=== PATIENT | male | born 1955 | race Two or more races ===

== ENCOUNTER 2020-12-05 20:11 | Inpatient (IN) | payer MEDICAID, OTHER ==
[~2020-12-05] VITALS: Ht 167.6 cm; Wt 126.5 kg
[2020-12-05 20:35] VITALS: BP 114/73
[2020-12-05] MEDS ORDERED: DexAMETHasone SOD PHOS 10MG/1ML VIAL INJ IV ONE (21:00)
[2020-12-05 21:15] LABS: Basophils # (auto) 0 10 ^3/uL (0-0.2); Basophils % (auto) 0.1 % (0.0-2.0); Eosinophils # (auto) 0 10 ^3/uL (0-0.8); Hemoglobin 16.6 g/dL (13.5-17.5); Lymphocytes # (auto) 1.6 10 ^3/uL (0.4-5.4); Lymphocytes % (auto) 8.8 % (10.0-50.0); Mean Corpuscular Hemoglobin 30.5 pg (28.0-32.0); Mean Corpuscular Volume 89.8 fL (80.0-100.0); Monocytes % (auto) 5.7 % (0.0-12.0); Neutrophils # (auto) 15.1 10 ^3/uL (1.6-8.6); Neutrophils % (auto) 85.4 % (37.0-80.0); Nucleated Red Blood Cells % 0.1 %; Platelet Count (auto) 279 10^3/uL (140-450); Red Blood Cells 5.45 10^6/uL (4.5-5.90); Red Cell Distribution Width 14.7 % (11.8-14.3); White Blood Cell 17.7 10^3/uL (4.4-10.8)
[2020-12-05 21:40] LABS: Albumin 3.3 g/dL (3.4-5.0); Anion Gap 7 (5-15); Blood Urea Nitrogen 38 mg/dL (7-18); Calcium 9.1 mg/dL (8.5-10.1); Carbon Dioxide 29 mmol/L (21-32); Chloride 100 mmol/L (98-107); Glucose 120 mg/dL (74-106); Magnesium 2.2 mg/dL (1.6-2.6); Potassium 3.5 mmol/L (3.5-5.1); Sodium 136 mmol/L (136-145)
[2020-12-05 21:42] LABS: INR 1.06 (0.9-1.15); Partial Thromboplastin Time 29.3 sec (23.0-31.2)
[2020-12-05 21:43] LABS: Lactic Acid w/Reflex 2.7 mmol/L (0.4-2.0)
[2020-12-05 21:49] LABS: Alanine Aminotransferase 53 U/L (16-61); Alkaline Phosphatase 60 U/L (45-117); Aspartate Aminotransferase 49 U/L (15-37); Bilirubin, Total 0.6 mg/dL (0.2-1.0); GFR African American 41 mL/min; GFR Non-African American 34 mL/min; Lactate Dehydrogenase 446 U/L (87-241); Total Protein 7.9 g/dL (6.4-8.2)
[2020-12-05] MEDS ORDERED: LACTATED RINGER'S 1,000 ML IV ONE (22:00)
[2020-12-05] MEDS ORDERED: AZITHROMYCIN 500MG/ 250ML 250 ML IV ONE (22:00)
[2020-12-05 23:39] VITALS: BP 94/68
[2020-12-06 02:54] VITALS: BP 93/59
[2020-12-06] MEDS ORDERED: DEXTROSE (50%) 50ML SYRG IV PRN (03:00)
[2020-12-06] MEDS ORDERED: DOCUSATE SOD 100 MG CAP PO PRN (03:00)
[2020-12-06] MEDS ORDERED: MORPHINE SULF INJ 2 MG/ML SYRINGE 1ML IV PRN (03:00)
[2020-12-06] MEDS ORDERED: ALBUTEROL SULF HFA 90MCG INH 200DOSE IN PRN (03:00)
[2020-12-06] MEDS ORDERED: NITROGLYCERIN 0.4 MG SL TAB SL PRN (03:00)
[2020-12-06] MEDS ORDERED: HYDROcodone-ACET 5/325MG TAB PO PRN (03:00)
[2020-12-06] MEDS ORDERED: ACETAMINOPHEN 500 MG TAB PO PRN (03:00)
[2020-12-06] MEDS: SODIUM CHLORIDE 0.9% 1,000 ML IV SCH ×2 (03:26→19:40)
[2020-12-06] MEDS ORDERED: SODIUM CHLORIDE 0.9% 500 ML IV ONE (06:30)
[2020-12-06] MEDS: ACCU-CHEK COMFORT CURVE STRIP VI SCH ×4 (06:44→22:40)
[2020-12-06] MEDS: InsuLIN REG 1unit/0.01ml Soln (100units/ml) SC SCH ×4 (06:45→23:00)
[2020-12-06 07:46] VITALS: BP 94/65
[2020-12-06] MEDS: cefTRIAXone 1GM/50ML D5W 50 ML IV SCH (09:01)
[2020-12-06] MEDS: ASCORBIC ACID 1,000 MG TAB PO SCH (10:00)
[2020-12-06] MEDS: BUDESONIDE (INHALATION) 180 MCG IH IN SCH ×2 (10:00→22:00)
[2020-12-06] MEDS: FAMOTIDINE (10MG/ML) 2ML VL IV SCH ×2 (10:00→23:26)
[2020-12-06] MEDS: DexAMETHasone SOD PHOS 10MG/1ML VIAL INJ IV SCH (10:01)
[2020-12-06] MEDS: CHOLECALCIFEROL (VITD3) 2,000 UNIT CAP PO SCH (10:01)
[2020-12-06] MEDS: ZINC SULFATE 220mg CAP or TAB PO SCH (10:01)
[2020-12-06] MEDS: HEPARIN SODIUM (PORCINE) 5000 UNITS/ML 1ML VIAL SC SCH ×2 (10:18→23:24)
[2020-12-06] MEDS: MULTIPLE VITAMIN TAB PO SCH (10:18)
[2020-12-06] MEDS: DOXYCYCLINE 100MG/250ML 250 ML IV SCH ×2 (10:40→23:26)
[2020-12-06 13:40] VITALS: BP 99/64
[2020-12-06 18:10] VITALS: BP 96/61
[2020-12-06] MEDS: ALBUTEROL SULF HFA 90MCG INH 200DOSE IN SCH ×2 (21:30→22:00)
[2020-12-06 22:00] VITALS: BP 96/63
[2020-12-07 02:30] VITALS: BP 94/58
[2020-12-07 06:21] LABS: Basophils # (auto) 0 10 ^3/uL (0-0.2); Basophils % (auto) 0.1 % (0.0-2.0); Eosinophils # (auto) 0 10 ^3/uL (0-0.8); Hematocrit 43.3 % (41.0-53.0); Hemoglobin 14.9 g/dL (13.5-17.5); Lymphocytes # (auto) 1.1 10 ^3/uL (0.4-5.4); Lymphocytes % (auto) 6.6 % (10.0-50.0); Mean Corpuscular Hemoglobin 30.3 pg (28.0-32.0); Mean Corpuscular Hgb Conc. 34.3 g/dL (32.0-36.0); Mean Corpuscular Volume 88.4 fL (80.0-100.0); Monocytes # (auto) 0.9 10 ^3/uL (0-1.3); Monocytes % (auto) 5.3 % (0.0-12.0); Neutrophils # (auto) 14.8 10 ^3/uL (1.6-8.6); Platelet Count (auto) 288 10^3/uL (140-450); Red Cell Distribution Width 14.7 % (11.8-14.3); White Blood Cell 16.8 10^3/uL (4.4-10.8)
[2020-12-07 06:35] VITALS: BP 93/65
[2020-12-07] MEDS: ACCU-CHEK COMFORT CURVE STRIP VI SCH ×4 (06:44→22:30)
[2020-12-07 06:53] LABS: Calcium 8.7 mg/dL (8.5-10.1)
[2020-12-07 07:02] LABS: BUN/Creatinine Ratio 34.8; CRP High Sensitivity 9.83 mg/dL (< 0.3)
[2020-12-07] MEDS: InsuLIN REG 1unit/0.01ml Soln (100units/ml) SC SCH ×4 (07:03→22:30)
[2020-12-07] MEDS: ASCORBIC ACID 1,000 MG TAB PO SCH (08:13)
[2020-12-07] MEDS: MULTIPLE VITAMIN TAB PO SCH (08:13)
[2020-12-07] MEDS: ZINC SULFATE 220mg CAP or TAB PO SCH (08:13)
[2020-12-07] MEDS: FAMOTIDINE (10MG/ML) 2ML VL IV SCH (08:13)
[2020-12-07] MEDS: DexAMETHasone SOD PHOS 10MG/1ML VIAL INJ IV SCH (08:14)
[2020-12-07] MEDS: cefTRIAXone 1GM/50ML D5W 50 ML IV SCH (08:14)
[2020-12-07] MEDS: CHOLECALCIFEROL (VITD3) 2,000 UNIT CAP PO SCH (08:17)
[2020-12-07] MEDS: HEPARIN SODIUM (PORCINE) 5000 UNITS/ML 1ML VIAL SC SCH ×2 (08:25→22:30)
[2020-12-07] MEDS: BUDESONIDE (INHALATION) 180 MCG IH IN SCH ×2 (09:16→22:00)
[2020-12-07] MEDS: ALBUTEROL SULF HFA 90MCG INH 200DOSE IN SCH ×3 (09:18→22:00)
[2020-12-07] MEDS ORDERED: DOPamine 1600MCG/ML D5W 250 ML IV SCH (10:45)
[2020-12-07] MEDS: DOXYCYCLINE 100MG/250ML 250 ML IV SCH (10:52)
[2020-12-07 11:27] LABS: Urine Bacteria NONE SEEN /hpf (None Seen); Urine Blood Negative /uL (Negative); Urine Specific Gravity 1.021 (1.001-1.035); Urine WBC 5 /hpf (0 - 3)
[2020-12-07] MEDS: DOPamine 1600MCG/ML D5W 250 ML IV SCH (11:40)
[2020-12-07] MEDS: SODIUM CHLORIDE 0.9% 1,000 ML IV SCH ×2 (12:13→21:45)
[2020-12-07 12:22] LABS: Sodium Urine 19 mmol/L (40-220)
[2020-12-07 12:37] LABS: Protein, Urine 56.6 mg/dL (0.0-11.9)
[2020-12-07 12:38] LABS: Creatinine, Urine 115 mg/dL (30.0-125.0)
[2020-12-07 14:03] VITALS: BP 106/67
[2020-12-07] MEDS ORDERED: SODIUM CHLORIDE 0.9% 1,000 ML IV ONE (18:00)
[2020-12-07 18:35] VITALS: BP 114/73
[2020-12-07 22:20] VITALS: BP 118/78
[2020-12-07] MEDS: methylPREDNISolone SOD SUCC 40 MG/ML VL IV SCH (22:30)
[2020-12-07] MEDS: ACETAMINOPHEN 650 mg PER 20.3 mL UD PO SCH (22:30)
[2020-12-07] MEDS: diphenhdrAMINE HCL 50 MG/1 ML VL IV SCH (22:30)
[2020-12-07] MEDS: TOCILIZUMAB 400 MG in SODIUM CHL 0.9% 80 ML IV SCH (23:00)
[2020-12-08] VITALS: BP 121/71
[2020-12-08] MEDS: DOXYCYCLINE 100MG/250ML 250 ML IV SCH ×3 (01:44→21:59)
[2020-12-08 01:50] LABS: Urine Bacteria FEW /hpf (None Seen); Urine Blood Negative /uL (Negative); Urine Mucus FEW (None Seen); Urine Specific Gravity 1.016 (1.001-1.035); Urine WBC 9 /hpf (0 - 3)
[2020-12-08 02:08] VITALS: BP 121/71
[2020-12-08 02:45] VITALS: BP 119/76
[2020-12-08] MEDS: ALBUTEROL SULF HFA 90MCG INH 200DOSE IN SCH ×3 (06:00→22:05)
[2020-12-08] MEDS: ACCU-CHEK COMFORT CURVE STRIP VI SCH ×3 (06:30→17:58)
[2020-12-08] MEDS: InsuLIN REG 1unit/0.01ml Soln (100units/ml) SC SCH ×3 (06:33→17:59)
[2020-12-08 08:00] VITALS: BP 120/66
[2020-12-08 08:01] LABS: Basophils # (auto) 0 10 ^3/uL (0-0.2); Basophils % (auto) 0.1 % (0.0-2.0); Eosinophils # (auto) 0 10 ^3/uL (0-0.8); Hematocrit 47.5 % (41.0-53.0); Hemoglobin 15.9 g/dL (13.5-17.5); Lymphocytes # (auto) 0.7 10 ^3/uL (0.4-5.4); Lymphocytes % (auto) 5.1 % (10.0-50.0); Mean Corpuscular Hgb Conc. 33.5 g/dL (32.0-36.0); Mean Corpuscular Volume 89.7 fL (80.0-100.0); Monocytes # (auto) 0.6 10 ^3/uL (0-1.3); Monocytes % (auto) 4.4 % (0.0-12.0); Neutrophils # (auto) 12.1 10 ^3/uL (1.6-8.6); Neutrophils % (auto) 90.4 % (37.0-80.0); Nucleated Red Blood Cells % 0.2 %; Platelet Count (auto) 356 10^3/uL (140-450); Red Cell Distribution Width 14.4 % (11.8-14.3); White Blood Cell 13.4 10^3/uL (4.4-10.8)
[2020-12-08 08:12] LABS: Calcium 8.6 mg/dL (8.5-10.1); Potassium 4.1 mmol/L (3.5-5.1)
[2020-12-08 08:24] LABS: BUN/Creatinine Ratio 31.2; CRP High Sensitivity 4.01 mg/dL (< 0.3)
[2020-12-08] MEDS: SODIUM CHLORIDE 0.9% 1,000 ML IV SCH ×2 (08:30→17:58)
[2020-12-08] MEDS: DexAMETHasone SOD PHOS 10MG/1ML VIAL INJ IV SCH (09:51)
[2020-12-08] MEDS: diphenhdrAMINE HCL 50 MG/1 ML VL IV SCH (09:51)
[2020-12-08] MEDS: methylPREDNISolone SOD SUCC 40 MG/ML VL IV SCH (09:51)
[2020-12-08] MEDS: FAMOTIDINE (10MG/ML) 2ML VL IV SCH (09:51)
[2020-12-08] MEDS: cefTRIAXone 1GM/50ML D5W 50 ML IV SCH (09:51)
[2020-12-08] MEDS: CHOLECALCIFEROL (VITD3) 2,000 UNIT CAP PO SCH (09:52)
[2020-12-08] MEDS: MULTIPLE VITAMIN TAB PO SCH (09:52)
[2020-12-08] MEDS: ACETAMINOPHEN 650 mg PER 20.3 mL UD PO SCH (09:52)
[2020-12-08] MEDS: ASCORBIC ACID 1,000 MG TAB PO SCH (09:52)
[2020-12-08] MEDS: ZINC SULFATE 220mg CAP or TAB PO SCH (09:52)
[2020-12-08] MEDS: HEPARIN SODIUM (PORCINE) 5000 UNITS/ML 1ML VIAL SC SCH (09:53)
[2020-12-08] MEDS: BUDESONIDE (INHALATION) 180 MCG IH IN SCH ×2 (10:00→21:03)
[2020-12-08] MEDS: TOCILIZUMAB 400 MG in SODIUM CHL 0.9% 80 ML IV SCH (10:59)
[2020-12-08] MEDS: DOPamine 1600MCG/ML D5W 250 ML IV SCH (11:19)
[2020-12-08 16:00] VITALS: BP 111/69
[2020-12-08] MEDS ORDERED: DEXTROSE (50%) 50ML SYRG IV PRN (20:15)
[2020-12-08] MEDS ORDERED: AMINO ACID INFUSION IV NR ×2 (21:00)
[2020-12-08] MEDS ORDERED: INSULIN R IV NR ×2 (21:00)
[2020-12-08] MEDS ORDERED: D10W IV NR ×2 (21:00)
[2020-12-08] MEDS ORDERED: PPN PER PHARMACY 0 ML IV SCH (21:00)
[2020-12-08] MEDS: ENOXAPARIN SOD 120 MG/0.8 ML SYRINGE SC SCH (21:59)
[2020-12-08] MEDS ORDERED: InsuLIN REG 1unit/0.01ml Soln (100units/ml) SC SCH (22:00)
[2020-12-08] MEDS ORDERED: ACCU-CHEK COMFORT CURVE STRIP VI SCH (22:00)
[2020-12-09] MEDS ORDERED: DEXTROSE (50%) 50ML SYRG IV SCH
[2020-12-09 00:08] VITALS: BP 112/71
[2020-12-09] MEDS: SODIUM CHLORIDE 0.9% 1,000 ML IV SCH ×3 (05:22→23:45)
[2020-12-09] MEDS: ACCU-CHEK COMFORT CURVE STRIP VI SCH ×4 (05:54→17:35)
[2020-12-09] MEDS: InsuLIN REG 1unit/0.01ml Soln (100units/ml) SC SCH ×4 (06:01→17:35)
[2020-12-09 06:35] LABS: Basophils # (auto) 0 10 ^3/uL (0-0.2); Basophils % (auto) 0.1 % (0.0-2.0); Eosinophils # (auto) 0 10 ^3/uL (0-0.8); Hematocrit 45.3 % (41.0-53.0); Hemoglobin 15.4 g/dL (13.5-17.5); Lymphocytes # (auto) 1.2 10 ^3/uL (0.4-5.4); Mean Corpuscular Hemoglobin 30.6 pg (28.0-32.0); Mean Corpuscular Hgb Conc. 33.9 g/dL (32.0-36.0); Mean Corpuscular Volume 90.3 fL (80.0-100.0); Monocytes # (auto) 0.9 10 ^3/uL (0-1.3); Monocytes % (auto) 6.7 % (0.0-12.0); Neutrophils # (auto) 11.4 10 ^3/uL (1.6-8.6); Neutrophils % (auto) 84.2 % (37.0-80.0); Nucleated Red Blood Cells % 0.1 %; Platelet Count (auto) 307 10^3/uL (140-450); Red Blood Cells 5.02 10^6/uL (4.5-5.90); Red Cell Distribution Width 14.8 % (11.8-14.3); White Blood Cell 13.5 10^3/uL (4.4-10.8)
[2020-12-09] MEDS: BUDESONIDE (INHALATION) 180 MCG IH IN SCH ×2 (06:45→20:10)
[2020-12-09] MEDS: ALBUTEROL SULF HFA 90MCG INH 200DOSE IN SCH ×3 (06:45→20:10)
[2020-12-09 07:04] LABS: Albumin 2.5 g/dL (3.4-5.0); Calcium 8.2 mg/dL (8.5-10.1); Magnesium 2.6 mg/dL (1.6-2.6); Potassium 4.2 mmol/L (3.5-5.1)
[2020-12-09 07:15] LABS: BUN/Creatinine Ratio 32.6; Bilirubin, Total 0.4 mg/dL (0.2-1.0); CRP High Sensitivity 1.65 mg/dL (< 0.3); Pre Albumin 13.4 mg/dL (20.0-40.0); Total Protein 6.2 g/dL (6.4-8.2)
[2020-12-09 08:00] VITALS: BP 114/79
[2020-12-09] MEDS: ENOXAPARIN SOD 120 MG/0.8 ML SYRINGE SC SCH ×2 (10:38→21:02)
[2020-12-09] MEDS: cefTRIAXone 1GM/50ML D5W 50 ML IV SCH (10:38)
[2020-12-09] MEDS: DexAMETHasone SOD PHOS 10MG/1ML VIAL INJ IV SCH (10:41)
[2020-12-09] MEDS: FAMOTIDINE (10MG/ML) 2ML VL IV SCH (10:41)
[2020-12-09] MEDS: MULTIPLE VITAMIN TAB PO SCH (10:42)
[2020-12-09] MEDS: CHOLECALCIFEROL (VITD3) 2,000 UNIT CAP PO SCH (10:42)
[2020-12-09] MEDS: ASCORBIC ACID 1,000 MG TAB PO SCH (10:42)
[2020-12-09] MEDS: DOXYCYCLINE 100MG/250ML 250 ML IV SCH ×2 (10:42→21:46)
[2020-12-09] MEDS: ZINC SULFATE 220mg CAP or TAB PO SCH (10:42)
[2020-12-09] MEDS: DOPamine 1600MCG/ML D5W 250 ML IV SCH (11:16)
[2020-12-09 16:00] VITALS: BP 127/82
[2020-12-09] MEDS ORDERED: PPN PER PHARMACY IV NR ×8 (20:00)
[2020-12-10] VITALS: BP 113/75
[2020-12-10] MEDS: InsuLIN REG 1unit/0.01ml Soln (100units/ml) SC SCH ×4 (00:54→17:45)
[2020-12-10] MEDS: ACCU-CHEK COMFORT CURVE STRIP VI SCH ×4 (06:11→17:45)
[2020-12-10] MEDS: ALBUTEROL SULF HFA 90MCG INH 200DOSE IN SCH ×3 (06:21→20:07)
[2020-12-10] MEDS: BUDESONIDE (INHALATION) 180 MCG IH IN SCH ×2 (06:21→20:07)
[2020-12-10 06:47] LABS: Basophils # (auto) 0.1 10 ^3/uL (0-0.2); Eosinophils # (auto) 0 10 ^3/uL (0-0.8); Eosinophils % (auto) 0.1 % (0.0-7.0); Hematocrit 49.9 % (41.0-53.0); Hemoglobin 17.1 g/dL (13.5-17.5); Lymphocytes # (auto) 1.5 10 ^3/uL (0.4-5.4); Lymphocytes % (auto) 11.4 % (10.0-50.0); Mean Corpuscular Hemoglobin 30.5 pg (28.0-32.0); Mean Corpuscular Hgb Conc. 34.2 g/dL (32.0-36.0); Mean Corpuscular Volume 89.3 fL (80.0-100.0); Monocytes # (auto) 0.4 10 ^3/uL (0-1.3); Monocytes % (auto) 2.9 % (0.0-12.0); Neutrophils # (auto) 11.2 10 ^3/uL (1.6-8.6); Neutrophils % (auto) 84.6 % (37.0-80.0); Nucleated Red Blood Cells % 0.1 %; Platelet Count (auto) 329 10^3/uL (140-450); Red Blood Cells 5.59 10^6/uL (4.5-5.90); Red Cell Distribution Width 14.6 % (11.8-14.3); White Blood Cell 13.2 10^3/uL (4.4-10.8)
[2020-12-10 07:22] LABS: Potassium 4.2 mmol/L (3.5-5.1)
[2020-12-10 07:41] LABS: Albumin 2.8 g/dL (3.4-5.0); BUN/Creatinine Ratio 32.8; Bilirubin, Total 0.6 mg/dL (0.2-1.0); CRP High Sensitivity 0.83 mg/dL (< 0.3); Calcium 8.6 mg/dL (8.5-10.1); Magnesium 2.5 mg/dL (1.6-2.6); Phosphorus 2.9 mg/dL (2.5-4.90); Total Protein 6.6 g/dL (6.4-8.2)
[2020-12-10 08:00] VITALS: BP 112/71
[2020-12-10] MEDS: SODIUM CHLORIDE 0.9% 1,000 ML IV SCH ×2 (08:59→18:15)
[2020-12-10] MEDS: DexAMETHasone SOD PHOS 10MG/1ML VIAL INJ IV SCH (08:59)
[2020-12-10] MEDS: ENOXAPARIN SOD 120 MG/0.8 ML SYRINGE SC SCH ×2 (08:59→20:23)
[2020-12-10] MEDS: cefTRIAXone 1GM/50ML D5W 50 ML IV SCH (08:59)
[2020-12-10] MEDS: FAMOTIDINE (10MG/ML) 2ML VL IV SCH (09:00)
[2020-12-10] MEDS: ASCORBIC ACID 1,000 MG TAB PO SCH (09:00)
[2020-12-10] MEDS: CHOLECALCIFEROL (VITD3) 2,000 UNIT CAP PO SCH (09:00)
[2020-12-10] MEDS: ZINC SULFATE 220mg CAP or TAB PO SCH (09:00)
[2020-12-10] MEDS: MULTIPLE VITAMIN TAB PO SCH (09:00)
[2020-12-10] MEDS: DOPamine 1600MCG/ML D5W 250 ML IV SCH (10:45)
[2020-12-10] MEDS: DOXYCYCLINE 100MG/250ML 250 ML IV SCH ×2 (10:45→21:15)
[2020-12-10 16:00] VITALS: BP 110/73
[2020-12-10] MEDS ORDERED: PPN PER PHARMACY IV NR ×5 (20:00)
[2020-12-11 00:02] VITALS: BP 137/79
[2020-12-11] MEDS: ACCU-CHEK COMFORT CURVE STRIP VI SCH ×5 (00:46→23:36)
[2020-12-11] MEDS: InsuLIN REG 1unit/0.01ml Soln (100units/ml) SC SCH ×5 (00:55→23:37)
[2020-12-11] MEDS: SODIUM CHLORIDE 0.9% 1,000 ML IV SCH (06:07)
[2020-12-11] MEDS: BUDESONIDE (INHALATION) 180 MCG IH IN SCH ×2 (06:42→09:34)
[2020-12-11] MEDS: ALBUTEROL SULF HFA 90MCG INH 200DOSE IN SCH ×2 (06:56→19:25)
[2020-12-11 08:19] VITALS: BP 140/83
[2020-12-11] MEDS: ENOXAPARIN SOD 120 MG/0.8 ML SYRINGE SC SCH ×2 (09:30→20:40)
[2020-12-11] MEDS: ZINC SULFATE 220mg CAP or TAB PO SCH (09:30)
[2020-12-11] MEDS: DexAMETHasone SOD PHOS 10MG/1ML VIAL INJ IV SCH (09:30)
[2020-12-11] MEDS: MULTIPLE VITAMIN TAB PO SCH (09:30)
[2020-12-11] MEDS: cefTRIAXone 1GM/50ML D5W 50 ML IV SCH (09:31)
[2020-12-11] MEDS: ASCORBIC ACID 1,000 MG TAB PO SCH (09:31)
[2020-12-11] MEDS: CHOLECALCIFEROL (VITD3) 2,000 UNIT CAP PO SCH (09:31)
[2020-12-11] MEDS: FAMOTIDINE (10MG/ML) 2ML VL IV SCH (09:46)
[2020-12-11 11:58] LABS: Eosinophils # (auto) 0.1 10 ^3/uL (0-0.8); White Blood Cell 15.6 10^3/uL (4.4-10.8)
[2020-12-11 12:01] LABS: Basophils # (auto) 0 10 ^3/uL (0-0.2); Hematocrit 52.2 % (41.0-53.0); Hemoglobin 17.5 g/dL (13.5-17.5); Lymphocytes % (auto) 6.2 % (10.0-50.0); Mean Corpuscular Hemoglobin 30.1 pg (28.0-32.0); Mean Corpuscular Hgb Conc. 33.4 g/dL (32.0-36.0); Monocytes # (auto) 0 10 ^3/uL (0-1.3); Monocytes % (auto) 0.2 % (0.0-12.0); Neutrophils # (auto) 14.5 10 ^3/uL (1.6-8.6); Neutrophils % (auto) 92.6 % (37.0-80.0); Nucleated Red Blood Cells % 0.1 %; Platelet Count (auto) 317 10^3/uL (140-450); Red Blood Cells 5.81 10^6/uL (4.5-5.90); Red Cell Distribution Width 14.8 % (11.8-14.3)
[2020-12-11 12:12] LABS: Albumin 2.6 g/dL (3.4-5.0); Calcium 7.9 mg/dL (8.5-10.1); Magnesium 2.4 mg/dL (1.6-2.6); Potassium 5.1 mmol/L (3.5-5.1)
[2020-12-11 12:16] LABS: BUN/Creatinine Ratio 33.3; Bilirubin, Total 0.5 mg/dL (0.2-1.0); CRP High Sensitivity 0.33 mg/dL (< 0.3); Phosphorus 2.8 mg/dL (2.5-4.90); Total Protein 6.3 g/dL (6.4-8.2)
[2020-12-11] MEDS: DOPamine 1600MCG/ML D5W 250 ML IV SCH (15:30)
[2020-12-11] MEDS: ONDANSETRON HCL 4 MG/2 ML VIAL IV PRN (15:35)
[2020-12-11] MEDS: MORPHINE SULFATE 4 MG/ML SYR/VIAL IV PRN (15:44)
[2020-12-11 16:00] VITALS: BP 103/70
[2020-12-11] MEDS ORDERED: REMDESIVIR PER PHARMACY 0 ML IV SCH (18:15)
[2020-12-11] MEDS ORDERED: REMDESIVIR 200 MG in NS 210ml LOADING DOSE ADULT IV ONE (18:45)
[2020-12-11] MEDS ORDERED: PPN PER PHARMACY IV NR ×8 (20:00)
[2020-12-12] VITALS: BP 114/74
[2020-12-12] MEDS: ONDANSETRON HCL 4 MG/2 ML VIAL IV PRN ×3 (03:34→23:11)
[2020-12-12] MEDS: InsuLIN REG 1unit/0.01ml Soln (100units/ml) SC SCH ×4 (06:00→22:59)
[2020-12-12] MEDS: ACCU-CHEK COMFORT CURVE STRIP VI SCH ×4 (06:20→22:56)
[2020-12-12] MEDS: BUDESONIDE (INHALATION) 180 MCG IH IN SCH ×2 (06:42→18:51)
[2020-12-12] MEDS: ALBUTEROL SULF HFA 90MCG INH 200DOSE IN SCH ×2 (06:42→18:51)
[2020-12-12 08:00] VITALS: BP 126/86
[2020-12-12 08:30] LABS: Basophils # (auto) 0 10 ^3/uL (0-0.2); Basophils % (auto) 0.2 % (0.0-2.0); Eosinophils # (auto) 0.2 10 ^3/uL (0-0.8); Eosinophils % (auto) 0.9 % (0.0-7.0); Hematocrit 50.6 % (41.0-53.0); Lymphocytes # (auto) 1.5 10 ^3/uL (0.4-5.4); Lymphocytes % (auto) 7.9 % (10.0-50.0); Mean Corpuscular Hemoglobin 30.3 pg (28.0-32.0); Mean Corpuscular Hgb Conc. 33.5 g/dL (32.0-36.0); Mean Corpuscular Volume 90.4 fL (80.0-100.0); Monocytes # (auto) 0.3 10 ^3/uL (0-1.3); Monocytes % (auto) 1.5 % (0.0-12.0); Neutrophils # (auto) 16.8 10 ^3/uL (1.6-8.6); Neutrophils % (auto) 89.5 % (37.0-80.0); Platelet Count (auto) 308 10^3/uL (140-450); Red Cell Distribution Width 14.7 % (11.8-14.3); White Blood Cell 18.8 10^3/uL (4.4-10.8)
[2020-12-12 09:18] LABS: Albumin 2.7 g/dL (3.4-5.0); BUN/Creatinine Ratio 38.3; Bilirubin, Total 0.5 mg/dL (0.2-1.0); CRP High Sensitivity 0.27 mg/dL (< 0.3); Magnesium 2.4 mg/dL (1.6-2.6); Phosphorus 3.4 mg/dL (2.5-4.90); Total Protein 6.1 g/dL (6.4-8.2)
[2020-12-12] MEDS: CHOLECALCIFEROL (VITD3) 2,000 UNIT CAP PO SCH (10:00)
[2020-12-12] MEDS: FAMOTIDINE (10MG/ML) 2ML VL IV SCH (10:00)
[2020-12-12] MEDS: ASCORBIC ACID 1,000 MG TAB PO SCH (10:00)
[2020-12-12] MEDS: ZINC SULFATE 220mg CAP or TAB PO SCH (10:00)
[2020-12-12] MEDS: MULTIPLE VITAMIN TAB PO SCH (10:00)
[2020-12-12] MEDS: DexAMETHasone SOD PHOS 10MG/1ML VIAL INJ IV SCH (10:33)
[2020-12-12] MEDS: ENOXAPARIN SOD 120 MG/0.8 ML SYRINGE SC SCH ×2 (10:33→20:47)
[2020-12-12] MEDS: cefTRIAXone 1GM/50ML D5W 50 ML IV SCH (10:34)
[2020-12-12] MEDS: REMDESIVIR 100mg 100 MG in SODIUM CHL 0.9% 230 ML IV SCH (15:00)
[2020-12-12 16:00] VITALS: BP 111/79
[2020-12-12] MEDS: DOPamine 1600MCG/ML D5W 250 ML IV SCH (16:00)
[2020-12-12] MEDS ORDERED: PPN PER PHARMACY IV NR ×8 (20:00)
[2020-12-12] MEDS: MORPHINE SULFATE 4 MG/ML SYR/VIAL IV PRN (23:12)
[2020-12-12 23:58] VITALS: BP 97/76
[2020-12-13] MEDS: ONDANSETRON HCL 4 MG/2 ML VIAL IV PRN (04:50)
[2020-12-13] MEDS: ACCU-CHEK COMFORT CURVE STRIP VI SCH ×4 (06:29→23:00)
[2020-12-13] MEDS: InsuLIN REG 1unit/0.01ml Soln (100units/ml) SC SCH ×4 (06:30→23:05)
[2020-12-13 06:46] LABS: Basophils # (auto) 0.2 10 ^3/uL (0-0.2); Basophils % (auto) 0.8 % (0.0-2.0); Eosinophils # (auto) 0.2 10 ^3/uL (0-0.8); Eosinophils % (auto) 0.8 % (0.0-7.0); Hematocrit 50.7 % (41.0-53.0); Hemoglobin 17.3 g/dL (13.5-17.5); Lymphocytes % (auto) 5.6 % (10.0-50.0); Mean Corpuscular Volume 91.2 fL (80.0-100.0); Monocytes # (auto) 0.3 10 ^3/uL (0-1.3); Monocytes % (auto) 1.4 % (0.0-12.0); Neutrophils # (auto) 16.9 10 ^3/uL (1.6-8.6); Neutrophils % (auto) 91.4 % (37.0-80.0); Platelet Count (auto) 251 10^3/uL (140-450); Red Blood Cells 5.56 10^6/uL (4.5-5.90); White Blood Cell 18.5 10^3/uL (4.4-10.8)
[2020-12-13 07:03] LABS: Potassium 4.2 mmol/L (3.5-5.1)
[2020-12-13 07:12] LABS: Albumin 2.7 g/dL (3.4-5.0); BUN/Creatinine Ratio 41.6; Bilirubin, Total 0.5 mg/dL (0.2-1.0); CRP High Sensitivity 0.54 mg/dL (< 0.3); Calcium 8.1 mg/dL (8.5-10.1); Magnesium 2.7 mg/dL (1.6-2.6); Phosphorus 4.2 mg/dL (2.5-4.90); Total Protein 5.9 g/dL (6.4-8.2)
[2020-12-13 07:33] VITALS: BP 93/57
[2020-12-13] MEDS: BUDESONIDE (INHALATION) 180 MCG IH IN SCH ×2 (07:33→22:00)
[2020-12-13] MEDS: ALBUTEROL SULF HFA 90MCG INH 200DOSE IN SCH ×2 (07:33→22:00)
[2020-12-13 08:00] VITALS: BP 93/57
[2020-12-13] MEDS: cefTRIAXone 1GM/50ML D5W 50 ML IV SCH (09:00)
[2020-12-13] MEDS: ENOXAPARIN SOD 120 MG/0.8 ML SYRINGE SC SCH ×2 (09:30→23:01)
[2020-12-13] MEDS: FAMOTIDINE (10MG/ML) 2ML VL IV SCH (09:30)
[2020-12-13] MEDS: DexAMETHasone SOD PHOS 10MG/1ML VIAL INJ IV SCH (09:30)
[2020-12-13] MEDS: MULTIPLE VITAMIN TAB PO SCH (09:33)
[2020-12-13] MEDS: ZINC SULFATE 220mg CAP or TAB PO SCH (09:33)
[2020-12-13] MEDS: CHOLECALCIFEROL (VITD3) 2,000 UNIT CAP PO SCH (09:34)
[2020-12-13] MEDS: ASCORBIC ACID 1,000 MG TAB PO SCH (09:34)
[2020-12-13] MEDS: DOPamine 1600MCG/ML D5W 250 ML IV SCH (11:00)
[2020-12-13 16:00] VITALS: BP 97/61
[2020-12-13] MEDS: REMDESIVIR 100mg 100 MG in SODIUM CHL 0.9% 230 ML IV SCH (16:00)
[2020-12-13] MEDS ORDERED: PPN PER PHARMACY IV NR ×8 (20:00)
[2020-12-14 00:19] VITALS: BP 108/71
[2020-12-14] MEDS: ONDANSETRON HCL 4 MG/2 ML VIAL IV PRN (03:07)
[2020-12-14] MEDS: MORPHINE SULFATE 4 MG/ML SYR/VIAL IV PRN (03:07)
[2020-12-14] MEDS: BUDESONIDE (INHALATION) 180 MCG IH IN SCH (06:21)
[2020-12-14] MEDS: ALBUTEROL SULF HFA 90MCG INH 200DOSE IN SCH (06:21)
[2020-12-14] MEDS: InsuLIN REG 1unit/0.01ml Soln (100units/ml) SC SCH ×4 (06:46→23:48)
[2020-12-14] MEDS: ACCU-CHEK COMFORT CURVE STRIP VI SCH ×4 (06:57→23:48)
[2020-12-14] MEDS: CHOLECALCIFEROL (VITD3) 2,000 UNIT CAP PO SCH (10:00)
[2020-12-14] MEDS: ZINC SULFATE 220mg CAP or TAB PO SCH (10:00)
[2020-12-14] MEDS: MULTIPLE VITAMIN TAB PO SCH (10:00)
[2020-12-14] MEDS: ASCORBIC ACID 1,000 MG TAB PO SCH (10:00)
[2020-12-14 10:29] LABS: Albumin 2.7 g/dL (3.4-5.0); Calcium 8.2 mg/dL (8.5-10.1); Magnesium 2.8 mg/dL (1.6-2.6)
[2020-12-14 10:33] LABS: BUN/Creatinine Ratio 40.1; Bilirubin, Total 0.4 mg/dL (0.2-1.0); Phosphorus 3.1 mg/dL (2.5-4.90); Pre Albumin 23.2 mg/dL (20.0-40.0); Total Protein 5.8 g/dL (6.4-8.2)
[2020-12-14] MEDS: DOPamine 1600MCG/ML D5W 250 ML IV SCH (11:00)
[2020-12-14] MEDS: BUDESONIDE (INHALATION) 0.5 MG/2 ML NEB NEB SCH ×3 (11:07→22:00)
[2020-12-14] MEDS: FAMOTIDINE (10MG/ML) 2ML VL IV SCH (11:44)
[2020-12-14] MEDS: cefTRIAXone 1GM/50ML D5W 50 ML IV SCH (11:44)
[2020-12-14] MEDS: ENOXAPARIN SOD 120 MG/0.8 ML SYRINGE SC SCH ×2 (11:44→20:27)
[2020-12-14] MEDS: DexAMETHasone SOD PHOS 10MG/1ML VIAL INJ IV SCH (11:44)
[2020-12-14] MEDS: REMDESIVIR 100mg 100 MG in SODIUM CHL 0.9% 230 ML IV SCH (15:05)
[2020-12-14 16:00] VITALS: BP 113/63
[2020-12-14 18:35] VITALS: BP 113/63
[2020-12-14] MEDS ORDERED: PPN PER PHARMACY IV NR ×10 (20:00)
[2020-12-15] VITALS (31 sets, daily range): BP systolic 76–128; BP diastolic 51–78
[2020-12-15] MEDS: ACCU-CHEK COMFORT CURVE STRIP VI SCH ×3 (05:55→18:00)
[2020-12-15] MEDS: InsuLIN REG 1unit/0.01ml Soln (100units/ml) SC SCH ×3 (05:57→18:00)
[2020-12-15] MEDS: ALBUTEROL SULF 2.5 MG/0.5ML(0.5%) NEB SOLN NEB PRN (06:21)
[2020-12-15] MEDS: BUDESONIDE (INHALATION) 0.5 MG/2 ML NEB NEB SCH ×2 (06:21→18:15)
[2020-12-15 08:20] LABS: Potassium 4.3 mmol/L (3.5-5.1)
[2020-12-15 08:28] LABS: Albumin 2.6 g/dL (3.4-5.0); BUN/Creatinine Ratio 41.6; Bilirubin, Total 0.4 mg/dL (0.2-1.0); Magnesium 2.8 mg/dL (1.6-2.6); Phosphorus 2.9 mg/dL (2.5-4.90); Total Protein 5.9 g/dL (6.4-8.2)
[2020-12-15] MEDS: MULTIPLE VITAMIN TAB PO SCH (10:00)
[2020-12-15] MEDS: ZINC SULFATE 220mg CAP or TAB PO SCH (10:00)
[2020-12-15] MEDS: ASCORBIC ACID 1,000 MG TAB PO SCH (10:00)
[2020-12-15] MEDS: CHOLECALCIFEROL (VITD3) 2,000 UNIT CAP PO SCH (10:00)
[2020-12-15] MEDS: cefTRIAXone 1GM/50ML D5W 50 ML IV SCH (10:41)
[2020-12-15] MEDS: DexAMETHasone SOD PHOS 10MG/1ML VIAL INJ IV SCH (10:42)
[2020-12-15] MEDS: FAMOTIDINE (10MG/ML) 2ML VL IV SCH (10:42)
[2020-12-15] MEDS: ENOXAPARIN SOD 120 MG/0.8 ML SYRINGE SC SCH ×2 (10:42→20:29)
[2020-12-15] MEDS: DOPamine 1600MCG/ML D5W 250 ML IV SCH (12:14)
[2020-12-15] MEDS ORDERED: MIDAZOLAM DRIP 50 mg/50mL 50 ML IV ONE (13:50)
[2020-12-15] MEDS ORDERED: fentaNYL Drip 2500mCg/250mlNS 250 ML IV ONE (13:51)
[2020-12-15] MEDS ORDERED: ETOMIDATE (2MG/ML) 20ML VIAL IV ONE ×2 (13:51→14:00)
[2020-12-15] MEDS ORDERED: ROCURONIUM 10MG/ML 10ML VIAL IV ONE ×2 (13:54→14:00)
[2020-12-15] MEDS: MIDAZOLAM DRIP 50 mg/50mL 50 ML IV SCH ×2 (14:00→16:46)
[2020-12-15] MEDS: PROPOFOL 100 ML IV SCH ×2 (14:00→17:18)
[2020-12-15] MEDS: fentaNYL Drip 2500mCg/250mlNS 250 ML IV SCH (14:00)
[2020-12-15] MEDS: NOREPINEPHRINE 8 MG/250ML KIT 250 ML IV SCH (14:30)
[2020-12-15] MEDS: REMDESIVIR 100mg 100 MG in SODIUM CHL 0.9% 230 ML IV SCH (15:00)
[2020-12-15] MEDS: ROCURONIUM BROMIDE 1,000 MG in D5W 5% 150 ML IV SCH (17:25)
[2020-12-15] MEDS ORDERED: PPN PER PHARMACY IV NR ×9 (20:00)
[2020-12-16] VITALS (76 sets, daily range): BP systolic 88–130; BP diastolic 51–75
[2020-12-16 05:08] LABS: Potassium 5.5 mmol/L (3.5-5.1)
[2020-12-16 05:22] LABS: Albumin 2.3 g/dL (3.4-5.0); BUN/Creatinine Ratio 29.7; Bilirubin, Total 0.4 mg/dL (0.2-1.0); Calcium 7.4 mg/dL (8.5-10.1); Phosphorus 7.8 mg/dL (2.5-4.90); Total Protein 5.5 g/dL (6.4-8.2)
[2020-12-16] MEDS: InsuLIN REG 1unit/0.01ml Soln (100units/ml) SC SCH ×5 (06:00→23:39)
[2020-12-16] MEDS: ACCU-CHEK COMFORT CURVE STRIP VI SCH ×5 (06:00→23:39)
[2020-12-16] MEDS: ALBUTEROL SULF 2.5 MG/0.5ML(0.5%) NEB SOLN NEB PRN ×2 (06:35→19:45)
[2020-12-16] MEDS: BUDESONIDE (INHALATION) 0.5 MG/2 ML NEB NEB SCH ×2 (06:35→19:45)
[2020-12-16] MEDS: ENOXAPARIN SOD 120 MG/0.8 ML SYRINGE SC SCH (08:29)
[2020-12-16] MEDS ORDERED: CHOLECALCIFEROL (VITD3) 1,000UNIT=25mCg TAB ONE (08:52)
[2020-12-16] MEDS: ROCURONIUM BROMIDE 1,000 MG in D5W 5% 150 ML IV SCH (09:28)
[2020-12-16] MEDS: cefTRIAXone 1GM/50ML D5W 50 ML IV SCH (09:50)
[2020-12-16] MEDS: DexAMETHasone SOD PHOS 10MG/1ML VIAL INJ IV SCH (09:50)
[2020-12-16] MEDS: FAMOTIDINE (10MG/ML) 2ML VL IV SCH (09:50)
[2020-12-16] MEDS: CHOLECALCIFEROL (VITD3) 2,000 UNIT CAP PO SCH (09:51)
[2020-12-16] MEDS: ASCORBIC ACID 1,000 MG TAB PO SCH (09:51)
[2020-12-16] MEDS: MULTIPLE VITAMIN TAB PO SCH (09:51)
[2020-12-16] MEDS: ZINC SULFATE 220mg CAP or TAB PO SCH (09:51)
[2020-12-16] MEDS ORDERED: TPN PER PHARMACY 0 ML IV SCH (11:00)
[2020-12-16] MEDS: DOPamine 1600MCG/ML D5W 250 ML IV SCH (12:34)
[2020-12-16] MEDS: fentaNYL Drip 2500mCg/250mlNS 250 ML IV SCH (14:00)
[2020-12-16] MEDS ORDERED: SODIUM BICARBONATE 8.4 % INJ 50ML VIAL IV ONE (14:00)
[2020-12-16] MEDS: NOREPINEPHRINE 8 MG/250ML KIT 250 ML IV SCH (14:00)
[2020-12-16] MEDS ORDERED: SODIUM BICARBONATE 8.4% INJ 50ML SYRINGE ONE (14:03)
[2020-12-16] MEDS ORDERED: ROCURONIUM 10MG/ML 10ML VIAL IV PRN (15:00)
[2020-12-16] MEDS: PIPERACILLIN-TAZOB 2.25GM 50 ML IV SCH ×2 (18:30→23:38)
[2020-12-16] MEDS ORDERED: TPN PER PHARMACY IV NR ×7 (20:00)
[2020-12-16] MEDS: ENOXAPARIN SOD 60 MG/0.6 ML SYRINGE SC SCH (22:00)
[2020-12-16] MEDS ORDERED: INSULIN LANTUS (GLARGINE) 1 /0.01ml (100units/ml) SC SCH (22:00)
[2020-12-17] VITALS (57 sets, daily range): BP systolic 77–122; BP diastolic 39–64
[2020-12-17] MEDS: PROPOFOL 100 ML IV SCH ×2 (05:58→14:00)
[2020-12-17] MEDS: PIPERACILLIN-TAZOB 2.25GM 50 ML IV SCH ×3 (06:00→17:57)
[2020-12-17] MEDS: ACCU-CHEK COMFORT CURVE STRIP VI SCH ×3 (06:00→18:00)
[2020-12-17] MEDS: InsuLIN REG 1unit/0.01ml Soln (100units/ml) SC SCH ×3 (06:20→18:00)
[2020-12-17] MEDS: BUDESONIDE (INHALATION) 0.5 MG/2 ML NEB NEB SCH ×2 (06:25→22:47)
[2020-12-17] MEDS: ALBUTEROL SULF 2.5 MG/0.5ML(0.5%) NEB SOLN NEB PRN ×2 (06:25→22:48)
[2020-12-17] MEDS: fentaNYL Drip 2500mCg/250mlNS 250 ML IV SCH (06:41)
[2020-12-17 07:31] LABS: Basophils # (auto) 0 10 ^3/uL (0-0.2); Basophils % (auto) 0.1 % (0.0-2.0); Eosinophils # (auto) 0 10 ^3/uL (0-0.8); Hematocrit 43.6 % (41.0-53.0); Hemoglobin 14.4 g/dL (13.5-17.5); Lymphocytes # (auto) 0.6 10 ^3/uL (0.4-5.4); Lymphocytes % (auto) 3.2 % (10.0-50.0); Mean Corpuscular Hemoglobin 30.3 pg (28.0-32.0); Mean Corpuscular Volume 91.9 fL (80.0-100.0); Monocytes # (auto) 0.4 10 ^3/uL (0-1.3); Neutrophils # (auto) 18.2 10 ^3/uL (1.6-8.6); Neutrophils % (auto) 94.7 % (37.0-80.0); Nucleated Red Blood Cells % 0.1 %; Platelet Count (auto) 149 10^3/uL (140-450); Red Blood Cells 4.75 10^6/uL (4.5-5.90); Red Cell Distribution Width 15.3 % (11.8-14.3); White Blood Cell 19.2 10^3/uL (4.4-10.8)
[2020-12-17 07:36] LABS: INR 1.09 (0.9-1.15); Partial Thromboplastin Time 44.5 sec (23.0-31.2)
[2020-12-17 07:38] LABS: Albumin 2.1 g/dL (3.4-5.0); Calcium 7.2 mg/dL (8.5-10.1); Magnesium 2.7 mg/dL (1.6-2.6); Potassium 4.8 mmol/L (3.5-5.1)
[2020-12-17 07:42] LABS: BUN/Creatinine Ratio 22.3; Bilirubin, Total 0.3 mg/dL (0.2-1.0); Phosphorus 5.2 mg/dL (2.5-4.90); Total Protein 4.8 g/dL (6.4-8.2)
[2020-12-17] MEDS ORDERED: CHOLECALCIFEROL (VITD3) 1,000UNIT=25mCg TAB ONE ×2 (09:11→09:17)
[2020-12-17] MEDS: DexAMETHasone SOD PHOS 10MG/1ML VIAL INJ IV SCH (10:00)
[2020-12-17] MEDS: ASCORBIC ACID 1,000 MG TAB PO SCH (10:00)
[2020-12-17] MEDS: FAMOTIDINE (10MG/ML) 2ML VL IV SCH (10:00)
[2020-12-17] MEDS: ZINC SULFATE 220mg CAP or TAB PO SCH (10:00)
[2020-12-17] MEDS: CHOLECALCIFEROL (VITD3) 2,000 UNIT CAP PO SCH (10:00)
[2020-12-17] MEDS: ENOXAPARIN SOD 60 MG/0.6 ML SYRINGE SC SCH (10:00)
[2020-12-17] MEDS: MULTIPLE VITAMIN TAB PO SCH (10:00)
[2020-12-17] MEDS: DOPamine 1600MCG/ML D5W 250 ML IV SCH ×2 (13:23→13:59)
[2020-12-17] MEDS: MIDAZOLAM DRIP 50 mg/50mL 50 ML IV SCH (13:58)
[2020-12-17] MEDS: NOREPINEPHRINE 8 MG/250ML KIT 250 ML IV SCH (13:58)
[2020-12-17] MEDS: SODIUM BICARBONATE 50ML VIAL 75 ML in SOD CHL 0.45% 1,000 ML IV SCH (17:43)
[2020-12-17] MEDS: TPN PER PHARMACY IV NR ×7 (20:06)
[2020-12-17] MEDS: INSULIN LANTUS (GLARGINE) 1 /0.01ml (100units/ml) SC SCH (22:17)
[2020-12-17 23:50] LABS: Basophils # (auto) 0.1 10 ^3/uL (0-0.2); Basophils % (auto) 0.4 % (0.0-2.0); Eosinophils # (auto) 0 10 ^3/uL (0-0.8); Hematocrit 43.7 % (41.0-53.0); Hemoglobin 14.4 g/dL (13.5-17.5); Lymphocytes # (auto) 0.6 10 ^3/uL (0.4-5.4); Lymphocytes % (auto) 2.8 % (10.0-50.0); Mean Corpuscular Hemoglobin 30.6 pg (28.0-32.0); Mean Corpuscular Volume 92.7 fL (80.0-100.0); Monocytes # (auto) 0.6 10 ^3/uL (0-1.3); Monocytes % (auto) 2.7 % (0.0-12.0); Neutrophils # (auto) 19.7 10 ^3/uL (1.6-8.6); Neutrophils % (auto) 94.1 % (37.0-80.0); Nucleated Red Blood Cells % 0.1 %; Platelet Count (auto) 157 10^3/uL (140-450); Red Blood Cells 4.72 10^6/uL (4.5-5.90); Red Cell Distribution Width 16.2 % (11.8-14.3)
[2020-12-18] VITALS (69 sets, daily range): BP systolic 82–131; BP diastolic 40–71
[2020-12-18 05:41] LABS: Basophils # (auto) 0.1 10 ^3/uL (0-0.2); Basophils % (auto) 0.4 % (0.0-2.0); Eosinophils # (auto) 0 10 ^3/uL (0-0.8); Hemoglobin 13.6 g/dL (13.5-17.5); Lymphocytes # (auto) 0.4 10 ^3/uL (0.4-5.4); Lymphocytes % (auto) 1.9 % (10.0-50.0); Mean Corpuscular Hemoglobin 30.6 pg (28.0-32.0); Mean Corpuscular Hgb Conc. 33.1 g/dL (32.0-36.0); Mean Corpuscular Volume 92.2 fL (80.0-100.0); Monocytes # (auto) 0.6 10 ^3/uL (0-1.3); Monocytes % (auto) 2.9 % (0.0-12.0); Neutrophils # (auto) 20.1 10 ^3/uL (1.6-8.6); Neutrophils % (auto) 94.8 % (37.0-80.0); Nucleated Red Blood Cells % 0.1 %; Platelet Count (auto) 158 10^3/uL (140-450); Red Blood Cells 4.44 10^6/uL (4.5-5.90); Red Cell Distribution Width 15.7 % (11.8-14.3); White Blood Cell 21.2 10^3/uL (4.4-10.8)
[2020-12-18] MEDS: PIPERACILLIN-TAZOB 2.25GM 50 ML IV SCH ×4 (06:00→18:04)
[2020-12-18] MEDS: ACCU-CHEK COMFORT CURVE STRIP VI SCH ×4 (06:00→18:12)
[2020-12-18 06:05] LABS: Potassium 4.5 mmol/L (3.5-5.1)
[2020-12-18 06:12] LABS: Albumin 2.1 g/dL (3.4-5.0); BUN/Creatinine Ratio 20.2; Bilirubin, Total 0.3 mg/dL (0.2-1.0); Calcium 7.1 mg/dL (8.5-10.1); Magnesium 2.5 mg/dL (1.6-2.6); Phosphorus 6.3 mg/dL (2.5-4.90); Total Protein 4.7 g/dL (6.4-8.2)
[2020-12-18] MEDS: InsuLIN REG 1unit/0.01ml Soln (100units/ml) SC SCH ×4 (06:43→18:05)
[2020-12-18] MEDS: FAMOTIDINE (10MG/ML) 2ML VL IV SCH (10:00)
[2020-12-18] MEDS: BUDESONIDE (INHALATION) 0.5 MG/2 ML NEB NEB SCH ×2 (10:00→19:30)
[2020-12-18] MEDS: DexAMETHasone SOD PHOS 10MG/1ML VIAL INJ IV SCH (10:00)
[2020-12-18] MEDS: ZINC SULFATE 220mg CAP or TAB PO SCH (10:01)
[2020-12-18] MEDS: CHOLECALCIFEROL (VITD3) 2,000 UNIT CAP PO SCH (10:01)
[2020-12-18] MEDS: MULTIPLE VITAMIN TAB PO SCH (10:01)
[2020-12-18] MEDS: ASCORBIC ACID 1,000 MG TAB PO SCH (10:01)
[2020-12-18] MEDS: SODIUM BICARBONATE 50ML VIAL 75 ML in SOD CHL 0.45% 1,000 ML IV SCH ×2 (10:03→23:23)
[2020-12-18] MEDS: FUROSEMIDE 100 MG/10ML VIAL IV SCH ×2 (13:00→18:00)
[2020-12-18] MEDS: NOREPINEPHRINE 8 MG/250ML KIT 250 ML IV SCH (14:00)
[2020-12-18] MEDS: fentaNYL Drip 2500mCg/250mlNS 250 ML IV SCH (14:03)
[2020-12-18] MEDS: PROPOFOL 100 ML IV SCH (14:04)
[2020-12-18] MEDS: MIDAZOLAM DRIP 50 mg/50mL 50 ML IV SCH (14:04)
[2020-12-18] MEDS ORDERED: phytonadione 10 MG in SODIUM CHL 0.9% 50 ML IV ONE (14:15)
[2020-12-18] MEDS: ALBUTEROL SULF 2.5 MG/0.5ML(0.5%) NEB SOLN NEB PRN (19:30)
[2020-12-18] MEDS ORDERED: SODIUM ACETATE IV NR ×7 (20:00)
[2020-12-18] MEDS ORDERED: [UNRECOGNIZED DRUG - OTHER] IV NR ×7 (20:00)
[2020-12-18] MEDS ORDERED: MULTIPLE VITAMIN IV NR ×7 (20:00)
[2020-12-18] MEDS ORDERED: CALCIUM GLUC IV NR ×7 (20:00)
[2020-12-18] MEDS: TPN PER PHARMACY IV NR ×7 (20:12)
[2020-12-18] MEDS: INSULIN LANTUS (GLARGINE) 1 /0.01ml (100units/ml) SC SCH (22:00)
[2020-12-19] VITALS (87 sets, daily range): BP systolic 75–134; BP diastolic 30–79
[2020-12-19] MEDS ORDERED: VASOPRESSIN 20 UNIT/ML ONE (01:19)
[2020-12-19 05:37] LABS: Basophils # (auto) 0 10 ^3/uL (0-0.2); Basophils % (auto) 0.1 % (0.0-2.0); Eosinophils # (auto) 0 10 ^3/uL (0-0.8); Eosinophils % (auto) 0.1 % (0.0-7.0); Hematocrit 37.1 % (41.0-53.0); Hemoglobin 12.4 g/dL (13.5-17.5); Lymphocytes # (auto) 0.5 10 ^3/uL (0.4-5.4); Lymphocytes % (auto) 2.2 % (10.0-50.0); Mean Corpuscular Hemoglobin 30.7 pg (28.0-32.0); Mean Corpuscular Hgb Conc. 33.4 g/dL (32.0-36.0); Mean Corpuscular Volume 91.8 fL (80.0-100.0); Monocytes # (auto) 0.9 10 ^3/uL (0-1.3); Monocytes % (auto) 4.1 % (0.0-12.0); Neutrophils # (auto) 21.5 10 ^3/uL (1.6-8.6); Neutrophils % (auto) 93.5 % (37.0-80.0); Nucleated Red Blood Cells % 0.3 %; Platelet Count (auto) 161 10^3/uL (140-450); Red Blood Cells 4.05 10^6/uL (4.5-5.90); Red Cell Distribution Width 16.3 % (11.8-14.3)
[2020-12-19 05:54] LABS: Albumin 2.1 g/dL (3.4-5.0); Potassium 4.6 mmol/L (3.5-5.1)
[2020-12-19 06:00] LABS: BUN/Creatinine Ratio 18.7; Bilirubin, Total 0.4 mg/dL (0.2-1.0); Magnesium 2.3 mg/dL (1.6-2.6); Phosphorus 7.8 mg/dL (2.5-4.90)
[2020-12-19] MEDS: ACCU-CHEK COMFORT CURVE STRIP VI SCH ×5 (06:25→19:01)
[2020-12-19] MEDS: PIPERACILLIN-TAZOB 2.25GM 50 ML IV SCH ×4 (06:25→17:54)
[2020-12-19] MEDS: FUROSEMIDE 100 MG/10ML VIAL IV SCH ×3 (06:25→22:00)
[2020-12-19] MEDS: InsuLIN REG 1unit/0.01ml Soln (100units/ml) SC SCH ×5 (06:27→19:01)
[2020-12-19] MEDS: ALBUTEROL SULF 2.5 MG/0.5ML(0.5%) NEB SOLN NEB PRN (07:00)
[2020-12-19] MEDS: BUDESONIDE (INHALATION) 0.5 MG/2 ML NEB NEB SCH ×2 (07:00→19:50)
[2020-12-19] MEDS: PHENYLEPHRINE IV 250 ML IV SCH ×3 (08:00→17:55)
[2020-12-19] MEDS: PROPOFOL 100 ML IV SCH ×4 (08:15→18:00)
[2020-12-19] MEDS: VASOPRESSIN 50 UNITS in D5W 5% 247.5 ML IV SCH (08:16)
[2020-12-19] MEDS: MIDAZOLAM DRIP 50 mg/50mL 50 ML IV SCH ×2 (09:07→14:18)
[2020-12-19] MEDS: FAMOTIDINE (10MG/ML) 2ML VL IV SCH (09:30)
[2020-12-19] MEDS: ZINC SULFATE 220mg CAP or TAB PO SCH (09:30)
[2020-12-19] MEDS: DexAMETHasone SOD PHOS 10MG/1ML VIAL INJ IV SCH (09:30)
[2020-12-19] MEDS: CHOLECALCIFEROL (VITD3) 2,000 UNIT CAP PO SCH (09:31)
[2020-12-19] MEDS: ASCORBIC ACID 1,000 MG TAB PO SCH (09:31)
[2020-12-19] MEDS: MULTIPLE VITAMIN TAB PO SCH (09:31)
[2020-12-19] MEDS: DOPamine 1600MCG/ML D5W 250 ML IV SCH (11:00)
[2020-12-19] MEDS: NOREPINEPHRINE 8 MG/250ML KIT 250 ML IV SCH ×2 (11:14→15:44)
[2020-12-19] MEDS: SODIUM BICARBONATE 50ML VIAL 75 ML in SOD CHL 0.45% 1,000 ML IV SCH (12:59)
[2020-12-19] MEDS: fentaNYL Drip 2500mCg/250mlNS 250 ML IV SCH (14:00)
[2020-12-19] MEDS ORDERED: TPN PER PHARMACY IV NR ×6 (20:00)
[2020-12-19] MEDS: INSULIN LANTUS (GLARGINE) 1 /0.01ml (100units/ml) SC SCH (22:00)
[2020-12-20] VITALS (97 sets, daily range): BP systolic 85–127; BP diastolic 43–67
[2020-12-20] MEDS: SODIUM BICARBONATE 50ML VIAL 75 ML in SOD CHL 0.45% 1,000 ML IV SCH ×2 (01:30→13:10)
[2020-12-20] MEDS: VASOPRESSIN 50 UNITS in D5W 5% 247.5 ML IV SCH (03:00)
[2020-12-20] MEDS: PHENYLEPHRINE IV 250 ML IV SCH ×3 (04:15→16:54)
[2020-12-20 05:07] LABS: Hematocrit 30.9 % (41.0-53.0); Hemoglobin 10.3 g/dL (13.5-17.5); Mean Corpuscular Hemoglobin 31.7 pg (28.0-32.0); Mean Corpuscular Hgb Conc. 33.5 g/dL (32.0-36.0); Mean Corpuscular Volume 94.6 fL (80.0-100.0); Platelet Count (auto) 148 10^3/uL (140-450); Red Blood Cells 3.27 10^6/uL (4.5-5.90); Red Cell Distribution Width 16.8 % (11.8-14.3); White Blood Cell 25.1 10^3/uL (4.4-10.8)
[2020-12-20] MEDS: PIPERACILLIN-TAZOB 2.25GM 50 ML IV SCH ×5 (06:00→23:45)
[2020-12-20] MEDS: InsuLIN REG 1unit/0.01ml Soln (100units/ml) SC SCH ×4 (06:00→23:37)
[2020-12-20] MEDS: FUROSEMIDE 100 MG/10ML VIAL IV SCH ×3 (06:00→21:59)
[2020-12-20] MEDS: ACCU-CHEK COMFORT CURVE STRIP VI SCH ×4 (06:00→23:17)
[2020-12-20 06:57] LABS: Basophils % (manual) 0 (0.0-2.0); Blast Cells 0; Eosinophils % (manual) 0 (0-7); Metamyelocytes % 0; Myelocytes % 0; Promyelocytes % 0; Reactive Lymphocytes 0
[2020-12-20] MEDS: DexAMETHasone SOD PHOS 10MG/1ML VIAL INJ IV SCH (08:22)
[2020-12-20] MEDS: ZINC SULFATE 220mg CAP or TAB PO SCH ×2 (08:23→10:00)
[2020-12-20] MEDS: MULTIPLE VITAMIN TAB PO SCH ×2 (08:23→10:00)
[2020-12-20] MEDS: FAMOTIDINE (10MG/ML) 2ML VL IV SCH (08:23)
[2020-12-20] MEDS: CHOLECALCIFEROL (VITD3) 2,000 UNIT CAP PO SCH (08:24)
[2020-12-20] MEDS: PROPOFOL 100 ML IV SCH ×4 (08:24→22:20)
[2020-12-20] MEDS: ASCORBIC ACID 1,000 MG TAB PO SCH ×2 (08:24→10:00)
[2020-12-20] MEDS: MIDAZOLAM DRIP 50 mg/50mL 50 ML IV SCH ×3 (08:24→18:22)
[2020-12-20 08:50] LABS: Band Neutrophils % (manual) 4; Lymphocytes % (manual) 7 (10.0-50.0); Monocytes % (manual) 5 (0-12)
[2020-12-20] MEDS: DOPamine 1600MCG/ML D5W 250 ML IV SCH (09:37)
[2020-12-20 12:49] LABS: Albumin 2.1 g/dL (3.4-5.0); Calcium 6.5 mg/dL (8.5-10.1); Magnesium 2.2 mg/dL (1.6-2.6); Potassium 5.4 mmol/L (3.5-5.1)
[2020-12-20 12:52] LABS: Bilirubin, Total 0.6 mg/dL (0.2-1.0); Total Protein 4.8 g/dL (6.4-8.2)
[2020-12-20] MEDS ORDERED: SODIUM BICARBONATE 8.4 % INJ 50ML VIAL IV ONE (13:15)
[2020-12-20] MEDS ORDERED: HEPARIN 1,000 UNITS/ml 1ML VIAL ONE (13:17)
[2020-12-20 13:35] LABS: Phosphorus 9.1 mg/dL (2.5-4.90)
[2020-12-20] MEDS: fentaNYL Drip 2500mCg/250mlNS 250 ML IV SCH ×2 (13:47→18:28)
[2020-12-20] MEDS ORDERED: CALCIUM GLUC 4.65meq/50ml D5AE 50 ML IV ONE (14:00)
[2020-12-20] MEDS: BUDESONIDE (INHALATION) 0.5 MG/2 ML NEB NEB SCH ×2 (15:32→22:07)
[2020-12-20] MEDS: NOREPINEPHRINE 8 MG/250ML KIT 250 ML IV SCH ×2 (18:22→22:43)
[2020-12-20] MEDS ORDERED: TPN PER PHARMACY IV NR ×7 (20:00)
[2020-12-20] MEDS: ALBUTEROL SULF 2.5 MG/0.5ML(0.5%) NEB SOLN NEB PRN (22:07)
[2020-12-20] MEDS: INSULIN LANTUS (GLARGINE) 1 /0.01ml (100units/ml) SC SCH (23:37)
[2020-12-21] VITALS (79 sets, daily range): BP systolic 61–159; BP diastolic 34–73
[2020-12-21] MEDS: VASOPRESSIN 50 UNITS in D5W 5% 247.5 ML IV SCH (01:15)
[2020-12-21] MEDS: PROPOFOL 100 ML IV SCH ×5 (02:00→21:31)
[2020-12-21] MEDS: PHENYLEPHRINE IV 250 ML IV SCH ×3 (02:46→17:12)
[2020-12-21] MEDS: MIDAZOLAM DRIP 50 mg/50mL 50 ML IV SCH ×6 (02:47→21:39)
[2020-12-21] MEDS: NOREPINEPHRINE 8 MG/250ML KIT 250 ML IV SCH ×3 (03:19→17:13)
[2020-12-21 03:58] LABS: Basophils # (auto) 0 10 ^3/uL (0-0.2); Basophils % (auto) 0.1 % (0.0-2.0); Eosinophils # (auto) 0 10 ^3/uL (0-0.8); Hematocrit 28.5 % (41.0-53.0); Hemoglobin 9.6 g/dL (13.5-17.5); Lymphocytes # (auto) 0.5 10 ^3/uL (0.4-5.4); Lymphocytes % (auto) 2.3 % (10.0-50.0); Mean Corpuscular Hemoglobin 30.7 pg (28.0-32.0); Mean Corpuscular Hgb Conc. 33.6 g/dL (32.0-36.0); Mean Corpuscular Volume 91.4 fL (80.0-100.0); Monocytes # (auto) 0.8 10 ^3/uL (0-1.3); Monocytes % (auto) 3.4 % (0.0-12.0); Neutrophils # (auto) 22.8 10 ^3/uL (1.6-8.6); Neutrophils % (auto) 94.2 % (37.0-80.0); Nucleated Red Blood Cells % 0.8 %; Platelet Count (auto) 130 10^3/uL (140-450); Red Blood Cells 3.11 10^6/uL (4.5-5.90); Red Cell Distribution Width 16.4 % (11.8-14.3); White Blood Cell 24.2 10^3/uL (4.4-10.8)
[2020-12-21 04:20] LABS: % Iron Saturation 56.4 % (20-55)
[2020-12-21 05:22] LABS: Calcium 6.4 mg/dL (8.5-10.1); Potassium 4.9 mmol/L (3.5-5.1)
[2020-12-21 05:45] LABS: Bilirubin, Total 0.7 mg/dL (0.2-1.0); Pre Albumin 29.9 mg/dL (20.0-40.0); Total Protein 4.5 g/dL (6.4-8.2)
[2020-12-21 05:51] LABS: BUN/Creatinine Ratio 18.4; Phosphorus 9.6 mg/dL (2.5-4.90)
[2020-12-21] MEDS: FUROSEMIDE 100 MG/10ML VIAL IV SCH ×3 (06:00→23:34)
[2020-12-21] MEDS: ACCU-CHEK COMFORT CURVE STRIP VI SCH ×4 (06:42→23:25)
[2020-12-21] MEDS: BUDESONIDE (INHALATION) 0.5 MG/2 ML NEB NEB SCH ×2 (06:45→19:00)
[2020-12-21] MEDS: InsuLIN REG 1unit/0.01ml Soln (100units/ml) SC SCH ×4 (06:48→23:24)
[2020-12-21] MEDS ORDERED: SODIUM CHL 0.9% 1000 ML BAG XX ONE (07:00)
[2020-12-21] MEDS: PIPERACILLIN-TAZOB 2.25GM 50 ML IV SCH ×3 (07:15→17:12)
[2020-12-21] MEDS: CHOLECALCIFEROL (VITD3) 2,000 UNIT CAP PO SCH (07:23)
[2020-12-21] MEDS: ASCORBIC ACID 1,000 MG TAB PO SCH (09:54)
[2020-12-21] MEDS: MULTIPLE VITAMIN TAB PO SCH (09:54)
[2020-12-21] MEDS: ZINC SULFATE 220mg CAP or TAB PO SCH (09:54)
[2020-12-21] MEDS: DexAMETHasone SOD PHOS 10MG/1ML VIAL INJ IV SCH (09:54)
[2020-12-21] MEDS: FAMOTIDINE (10MG/ML) 2ML VL IV SCH (10:35)
[2020-12-21] MEDS: DOPamine 1600MCG/ML D5W 250 ML IV SCH ×3 (11:00→23:11)
[2020-12-21] MEDS ORDERED: SODIUM BICARBONATE 8.4% INJ 50ML SYRINGE ONE (13:34)
[2020-12-21] MEDS ORDERED: EPINEPHrine HCL 250 ML IV ONE (13:34)
[2020-12-21] MEDS ORDERED: EPINEPHrine HCL 250 ML IV SCH (13:40)
[2020-12-21] MEDS ORDERED: SODIUM BICARBONATE 8.4 % INJ 50ML VIAL IV ONE (14:45)
[2020-12-21] MEDS: SODIUM BICARBONATE 50ML VIAL 150 ML in D5W 5% 1,000 ML IV SCH (17:03)
[2020-12-21] MEDS: ALBUTEROL SULF 2.5 MG/0.5ML(0.5%) NEB SOLN NEB PRN (19:03)
[2020-12-21] MEDS ORDERED: TPN PER PHARMACY IV NR ×8 (20:00)
[2020-12-21] MEDS: PHENYLEPHRINE INJ 40 MG in SODIUM CHL 0.9% 246 ML IV SCH (21:20)
[2020-12-21] MEDS: NOREPINEPHRINE BITARTRATE 16 MG in SODIUM CHL 0.9% 234 ML IV SCH (21:44)
[2020-12-21] MEDS: INSULIN LANTUS (GLARGINE) 1 /0.01ml (100units/ml) SC SCH (23:24)
[2020-12-22] VITALS (65 sets, daily range): BP systolic 62–142; BP diastolic 28–67
[2020-12-22] MEDS: PIPERACILLIN-TAZOB 2.25GM 50 ML IV SCH ×3 (00:49→12:28)
[2020-12-22] MEDS: PHENYLEPHRINE INJ 40 MG in SODIUM CHL 0.9% 246 ML IV SCH ×4 (01:19→13:17)
[2020-12-22] MEDS: MIDAZOLAM DRIP 50 mg/50mL 50 ML IV SCH ×3 (02:18→13:18)
[2020-12-22] MEDS: PROPOFOL 100 ML IV SCH ×5 (02:18→13:17)
[2020-12-22] MEDS: SODIUM BICARBONATE 50ML VIAL 150 ML in D5W 5% 1,000 ML IV SCH (03:53)
[2020-12-22 04:21] LABS: Basophils # (auto) 0.1 10 ^3/uL (0-0.2); Basophils % (auto) 0.3 % (0.0-2.0); Eosinophils # (auto) 0 10 ^3/uL (0-0.8); Hematocrit 24.9 % (41.0-53.0); Hemoglobin 8.5 g/dL (13.5-17.5); Lymphocytes # (auto) 1.9 10 ^3/uL (0.4-5.4); Lymphocytes % (auto) 7.8 % (10.0-50.0); Mean Corpuscular Hemoglobin 30.5 pg (28.0-32.0); Mean Corpuscular Volume 89.7 fL (80.0-100.0); Monocytes % (auto) 4.2 % (0.0-12.0); Neutrophils # (auto) 21.3 10 ^3/uL (1.6-8.6); Neutrophils % (auto) 87.7 % (37.0-80.0); Nucleated Red Blood Cells % 2.2 %; Platelet Count (auto) 116 10^3/uL (140-450); Red Blood Cells 2.78 10^6/uL (4.5-5.90); Red Cell Distribution Width 16.4 % (11.8-14.3); White Blood Cell 24.3 10^3/uL (4.4-10.8)
[2020-12-22 04:33] LABS: INR 1.01 (0.9-1.15); Partial Thromboplastin Time 33.9 sec (23.0-31.2)
[2020-12-22 04:55] LABS: Albumin 1.9 g/dL (3.4-5.0); Potassium 4.8 mmol/L (3.5-5.1)
[2020-12-22 04:58] LABS: BUN/Creatinine Ratio 18.2; Bilirubin, Total 0.9 mg/dL (0.2-1.0); CRP High Sensitivity 0.37 mg/dL (< 0.3); Total Protein 4.4 g/dL (6.4-8.2)
[2020-12-22] MEDS: NOREPINEPHRINE BITARTRATE 16 MG in SODIUM CHL 0.9% 234 ML IV SCH ×2 (05:00→13:18)
[2020-12-22 05:44] LABS: Calcium 5.8 mg/dL (8.5-10.1)
[2020-12-22] MEDS: FUROSEMIDE 100 MG/10ML VIAL IV SCH (06:24)
[2020-12-22] MEDS: ACCU-CHEK COMFORT CURVE STRIP VI SCH ×2 (06:24→12:28)
[2020-12-22] MEDS: InsuLIN REG 1unit/0.01ml Soln (100units/ml) SC SCH (06:25)
[2020-12-22] MEDS: BUDESONIDE (INHALATION) 0.5 MG/2 ML NEB NEB SCH (06:25)
[2020-12-22] MEDS: VASOPRESSIN 50 UNITS in D5W 5% 247.5 ML IV SCH (06:44)
[2020-12-22] MEDS: fentaNYL Drip 2500mCg/250mlNS 250 ML IV SCH (08:03)
[2020-12-22] MEDS: FAMOTIDINE (10MG/ML) 2ML VL IV SCH (10:04)
[2020-12-22] MEDS: ASCORBIC ACID 1,000 MG TAB PO SCH (10:04)
[2020-12-22] MEDS: CHOLECALCIFEROL (VITD3) 2,000 UNIT CAP PO SCH (10:04)
[2020-12-22] MEDS: DexAMETHasone SOD PHOS 10MG/1ML VIAL INJ IV SCH (10:04)
[2020-12-22] MEDS: MULTIPLE VITAMIN TAB PO SCH (10:04)
[2020-12-22] MEDS: ZINC SULFATE 220mg CAP or TAB PO SCH (10:04)
[2020-12-22] MEDS ORDERED: CALCIUM ACETATE 667 MG CAP NG SCH (14:00)
== END 2020-12-22 16:05 | DRG 130 ==
LOC: EDBD 20:11 → ER 20:19 → OVERFLOW 12-06 02:58 → TELE-WESTW 12-07 23:46 → ICU WEST 12-15 12:45
PROVIDERS: ADMIT Nurse Practitioner Family; ATTEND Internal Medicine
PROC: 5A09557 Assistance with Respiratory Ventilation, Greater than 96 Consecutive Hours, Continuous Positive Airway Pressure (ICD-10-PCS; 2020-12-06)
PROC: XW033H5 Introduction of Tocilizumab into Peripheral Vein, Percutaneous Approach, New Technology Group 5 (ICD-10-PCS; 2020-12-08)
PROC: 05HA33Z Insertion of Infusion Device into Left Brachial Vein, Percutaneous Approach (ICD-10-PCS; 2020-12-10)
PROC: B54NZZA Ultrasonography of Left Upper Extremity Veins, Guidance (ICD-10-PCS; 2020-12-10)
PROC: XW033E5 Introduction of Remdesivir Anti-infective into Peripheral Vein, Percutaneous Approach, New Technology Group 5 (ICD-10-PCS; 2020-12-12)
PROC: B54BZZA Ultrasonography of Right Lower Extremity Veins, Guidance (ICD-10-PCS; principal; 2020-12-15)
PROC: 5A1955Z Respiratory Ventilation, Greater than 96 Consecutive Hours (ICD-10-PCS; 2020-12-15)
PROC: 0BH17EZ Insertion of Endotracheal Airway into Trachea, Via Natural or Artificial Opening (ICD-10-PCS; 2020-12-15)
PROC: 06HY33Z Insertion of Infusion Device into Lower Vein, Percutaneous Approach (ICD-10-PCS; 2020-12-15)
PROC: 06HY33Z Insertion of Infusion Device into Lower Vein, Percutaneous Approach (ICD-10-PCS; 2020-12-20)
PROC: B54CZZA Ultrasonography of Left Lower Extremity Veins, Guidance (ICD-10-PCS; 2020-12-20)
PROC: 5A1D70Z Performance of Urinary Filtration, Intermittent, Less than 6 Hours Per Day (ICD-10-PCS; 2020-12-21)
PROC: 03HY32Z Insertion of Monitoring Device into Upper Artery, Percutaneous Approach (ICD-10-PCS; 2020-12-21)
DX: U07.1 COVID-19 (principal); A41.89 Other specified sepsis; J12.82 Pneumonia due to coronavirus disease 2019; J96.01 Acute respiratory failure with hypoxia; N17.0 Acute kidney failure with tubular necrosis; D89.839 Cytokine release syndrome, grade unspecified; E11.65 Type 2 diabetes mellitus with hyperglycemia; N18.9 Chronic kidney disease, unspecified; E66.9 Obesity, unspecified; Z68.37 Body mass index [BMI] 37.0-37.9, adult; E78.5 Hyperlipidemia, unspecified; E66.01 Morbid (severe) obesity due to excess calories; E86.0 Dehydration; R57.9 Shock, unspecified; I13.10 Hypertensive heart and chronic kidney disease without heart failure, with stage 1 through stage 4 chronic kidney disease, or unspecified chronic kidney disease; Z66 Do not resuscitate
CPT/HCPCS: 36415; 36600; 71045; 76775; 80048; 80053; 81001; 82040; 82270; 82570; 82728; 82805; 82962; 83036; 83540; 83550; 83605; 83615; 83735; 83880; 84100; 84156; 84300; 84443; 84478; 84484; 85007; 85025; 85027; 85379; 85610; 85730; 86141; 87040; 87070; 87081; 87205; 87426; 90935; 93970; 94002; 94003; 94640; 94660; 96365; 96366; 96368; G0378; J0171; J0610; J0696; J1100; J1815; J2250; J2405; J2543; J2704; J3430; J3490; J7060